=== PATIENT | female | born 1985 | race American Indian/Alaskan Native ===

== ENCOUNTER 2017-11-01 15:25 | Emergency (ER) | payer MEDICAID ==
--- NOTE | 2017-11-01 16:30 | XRay Report ---
RIGHTWRIST: Trauma, pain. Routine views demonstrate the carpal bones to be well mineralized with well preserved bony mineralization and interosseous joint spaces. The carpal and adjacent articular bones have normal contours. The surrounding soft tissues are unremarkable. IMPRESSION: Normal study.
[2017-11-01] MEDS ORDERED: MOTRIN PO ONE (20:45)
[2017-11-01] MEDS ORDERED: TYLENOL PO ONE (20:45)
--- NOTE | 2017-11-01 21:10 | Emergency Department Report ---
ED General Adult HPI - General Chief complaint: Extremity Injury, Upper Stated complaint: RIGHT WRIST PAIN Time Seen by Provider: 11/01/17 20:40 Source: patient Mode of arrival: Ambulatory Limitations: No Limitations - History of Present Illness Initial comments: The patient is a 31-year-old femalein past medical history who presents with right wrist pain patient is right-handed she states the pain has been going on for 3 weeks is intermittent and is worse at night it is an achy type of pain is 9 out of 10 located at the dorsum of her right wrist she states that she has had no trauma to the area and no injury. 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 Patient denies having any change in sensation or any neuropathy. Severity scale (0 -10): 10 - Related Data Previous Rx's Medication Instructions Recorded Last Taken Type Ibuprofen [Motrin 600 MG tab] 600 mg PO Q6HR PRN #60 tablet 05/04/16 Unknown Rx Diclofenac Sodium [Voltaren] 100 gm TP Q6H #1 gel..gram. 11/01/17 Unknown Rx Allergies Allergy/AdvReac Type Severity Reaction Status Date / Time No Known Allergies Allergy Verified 05/03/16 21:39 ED Review of Systems ROS: Stated complaint: RIGHT WRIST PAIN Other details as noted in HPI Constitutional: denies: chills, fever Eyes: denies: eye pain, eye discharge, vision change ENT: denies: ear pain, throat pain Respiratory: denies: cough, shortness of breath, wheezing Cardiovascular: denies: chest pain, palpitations Endocrine: no symptoms reported Gastrointestinal: denies: abdominal pain, nausea, diarrhea Genitourinary: denies: urgency, dysuria, discharge Musculoskeletal: as per HPI. denies: back pain, joint swelling, arthralgia Skin: denies: rash, lesions Neurological: denies: headache, weakness, paresthesias Psychiatric: denies: anxiety, depression Hematological/Lymphatic: denies: easy bleeding, easy bruising ED Past Medical Hx - Past Medical History Previous Medical History?: Yes Hx Hypertension: No Hx Congestive Heart Failure: No Hx Diabetes: No Hx Deep Vein Thrombosis: No Hx Renal Disease: No Hx Sickle Cell Disease: No Hx Seizures: No Hx Asthma: No Hx COPD: No Hx HIV: No - Surgical History Past Surgical History?: No - Social History Smoking Status: Never Smoker Substance Use Type: Non Opiate Pain - Medications Home Medications: Home Medications Medication Instructions Recorded Confirmed Last Taken Type Ibuprofen [Motrin 600 MG tab] 600 mg PO Q6HR PRN #60 tablet 05/04/16 Unknown Rx Diclofenac Sodium [Voltaren] 100 gm TP Q6H #1 gel..gram. 11/01/17 Unknown Rx ED Physical Exam - General Limitations: No Limitations General appearance: alert, in no apparent distress - Head Head exam: Present: atraumatic, normocephalic - Eye Eye exam: Present: normal appearance - ENT ENT exam: Present: mucous membranes moist - Neck Neck exam: Present: normal inspection - Respiratory Respiratory exam: Present: normal lung sounds bilaterally. Absent: respiratory distress - Cardiovascular Cardiovascular Exam: Present: regular rate, normal rhythm. Absent: systolic murmur, diastolic murmur, rubs, gallop - GI/Abdominal GI/Abdominal exam: Present: soft, normal bowel sounds - Extremities Exam Extremities exam: Present: tenderness (to palpation of dorsum of the wrist. ) - Back Exam Back exam: Present: normal inspection - Neurological Exam Neurological exam: Present: alert, oriented X3 - Psychiatric Psychiatric exam: Present: normal affect, normal mood - Skin Skin exam: Present: warm, dry, intact, normal color. Absent: rash ED Course Vital Signs 11/01/17 15:35 Temperature 98.3 F Pulse Rate 93 H Respiratory 16 Rate Blood Pressure 121/76 O2 Sat by Pulse 98 Oximetry ED Medical Decision Making - Radiology Data Radiology results: report reviewed, image reviewed X-ray of wrist: Shows no acute osseous injury - Medical Decision Making Cdx: Carpal tunnel ddx: Wrist fracture, de quervain's tenosynovitis I will give patient xrays, wrist splint and oral pain medication Patient's x-rays unremarkable I will give patient diagnosis of carpal tunnel can give her Voltaren cream as needed for pain also give her follow up with a primary care doctor and a surgeon if she needs relief for her wrist pain. Discussed outpatient patient agrees with plan additional verbal discharge instructions were given. Critical care attestation.: If time is entered above; I have spent that time in minutes in the direct care of this critically ill patient, excluding procedure time. ED Disposition Clinical Impression: Right wrist pain, Carpal tunnel syndrome of right wrist Disposition: DC-01 TO HOME OR SELFCARE Is pt being admited?: No Does the pt Need Aspirin: No Condition: Stable Additional Instructions: [facility] Address: [address] [facility] [address], [place] [address] Appointments: [email or web address] Prescriptions: Diclofenac Sodium [Voltaren] 100 gm TP Q6H #1 gel..gram. Referrals: PRIMARY CAREMD [Primary Care Provider] - 3-5 Days VIJAY PATEL MD [Staff Physician] - 3-5 Days Forms: Work/School Release Form(ED)
[2017-11-01 21:51] VITALS: BP 128/63
== END 2017-11-01 21:51 | disposition home or self-care (01) ==
LOC: ED 15:25
DX: G56.01 Carpal tunnel syndrome, right upper limb (principal); M25.531 Pain in right wrist; X50.3XXA Overexertion from repetitive movements, initial encounter; Y93.9 Activity, unspecified; Y92.89 Other specified places as the place of occurrence of the external cause; Y99.8 Other external cause status